=== PATIENT | female | born 1965 | race Caucasian/White ===

== ENCOUNTER 2020-05-23 23:16 | Observation (INO) ==
[2020-05-23] MEDS ORDERED: METOCLOPRAMIDE HCL INJ 5 MG/ML 2 ML VIAL IV STA (23:39)
[2020-05-23] MEDS ORDERED: diphenhydrAMINE 50 MG/ML VIAL IV STA (23:39)
[2020-05-23] MEDS ORDERED: OPTIRAY 320 125ml IV ONE (23:48)
--- NOTE | 2020-05-23 23:49 | Emergency Department Note ---
History of Present Illness General Chief complaint: Vertigo Stated complaint: SOB, CHEST/BACK PAIN, DIZZINESS Time Seen by Provider: 05/23/20 23:25 History of Present Illness This 55-year-old presents to the ER complaining of chest pain that radiates to her back with shortness of breath who feels dizzy with an unsteady gait since 9 PM Location: Chest Quality: Pressure Severity: Moderate Duration: Tonight Timing: Tonight Context: Patient was concerned and came in Modifying factors: better with rest; worse with activity Patient had her appendix out at the beginning the month and there was an abscess present. She finished her antibiotics yesterday. Patient states tonight she felt dizzy and had an unsteady gait and then developed chest pain with shortness of breath that radiates to her back. The symptoms have progressed. Activity makes it worse and nothing makes it better. No history of PE or stroke. Patient denies abdominal pain, fever, chills, localized weakness, vision problems. She describes it dizziness as feeling off balance. Home Medications Medication Instructions Recorded Confirmed Type bupropion HCl 150 mg PO BID 04/24/20 05/23/20 History Allergies Allergy/AdvReac Type Severity Reaction Status Date / Time albuterol Allergy Intermediate RASH, SHAKY Verified 05/23/20 23:46 shellfish derived Allergy Intermediate Hives, bad Verified 05/23/20 23:46 migraines oxycodone AdvReac Intermediate NAUSEA/VOMI Verified 05/23/20 23:46 TING Past Med/Surg History Medical History (Updated 05/24/20 @ 00:53 by Kat Alexis PA-C) Acute appendicitis Depression No known health problems Surgical History (Updated 05/23/20 @ 23:48 by Kat Alexis PA-C) History of appendectomy History of section History of colonoscopy Social History Smoking Status: Never smoker Second Hand Exposure: No; Hx Alcohol Use: Yes Alcohol type: wine Hx Substance Use: No Preferred Language: Spanish Communication Ability: Effective Database Management Specialist Required: No Beliefs That Will Affect Care: None Current Living Situation: Spouse Feels Safe at Home: Yes Safety Concerns: Feels Safe At This Time Assistive Devices: Glasses Review of Systems A total of 10 systems reviewed and were otherwise negative Physical Exam Vital Signs Vital Signs - 24 hr 05/23/20 23:21 05/23/20 23:36 05/24/20 00:30 Temperature 36.7 C Temperature Source Temporal Artery Scan Pulse Rate - Lying Pulse Rate - Sitting Pulse Rate - Standing Pulse Rate 84 78 78 Pulse Rate from SpO2 Sensor 77 77 Respiratory Rate 18 17 20 Blood Pressure - Lying Blood Pressure - Sitting Blood Pressure- Standing Blood Pressure 141/95 H 142/92 H 122/82 Blood Pressure Mean 110 108 95 Pulse Oximetry 97 98 96 Oxygen Delivery Method Room Air Sepsis Recent Fever Within 48 Hours No Sepsis New/Unexplained Change in Mental Status No Sepsis Action Taken by Nursing No Action Required 05/24/20 01:30 05/24/20 01:55 Temperature Temperature Source Pulse Rate - Lying 83 Pulse Rate - Sitting 89 Pulse Rate - Standing 91 H Pulse Rate 82 Pulse Rate from SpO2 Sensor 83 Respiratory Rate 19 Blood Pressure - Lying 113/78 Blood Pressure - Sitting 120/87 Blood Pressure- Standing 136/95 Blood Pressure 139/88 Blood Pressure Mean 105 Pulse Oximetry 98 Oxygen Delivery Method Sepsis Recent Fever Within 48 Hours Sepsis New/Unexplained Change in Mental Status Sepsis Action Taken by Nursing VITALS: Vitals are noted on the nurse's note and reviewed by myself. Vital signs stable. GENERAL: Pleasant female, in no acute distress, nondiaphoretic, well-developed well-nourished. SKIN: The skin was without rashes, erythema, edema, or bruising. There is no tenting of the skin. Capillary reflex less than 2 seconds. HEAD: Normocephalic atraumatic. EARS: External auditory canals clear, tympanic membranes pearly leroy without erythema or effusion bilaterally. EYES: Pupils equal round and reactive to light and accommodation. Conjunctivae without injection, sclerae without icterus. Extraocular movements intact. NOSE: Patent, turbinates without inflammation or discharge. MOUTH: Mucous membranes moist. Pharynx without erythema or exudate. Uvula midline. Airway patent. Tongue does not deviate. NECK: Supple without nuchal rigidity. No lymphadenopathy. No thyromegaly. Cervical spine is nontender. No JVD. HEART: Regular rate and rhythm LUNGS: Clear to auscultation bilaterally without wheezes, rales or rhonchi. No retractions or accessory muscle use. ABDOMEN: Positive bowel sounds x 4. Normal tympanic percussion. Soft, nontender, without masses or organomegaly. Romero sign negative. No guarding or rebound tenderness. No CVA tenderness MUSCULOSKELETAL: No muscle atrophy, erythema, or edema noted. NEURO: Patient was alert and oriented to person place and time. Normal sensation to light and sharp touch. Cranial nerves II through XII grossly intact. No pronator drift. Cerebellar exam intact. No focal neurological deficits. Course Administered Medications Lactated Ringer's (Lr) 1,000 mls @ 500 mls/hr IV .Q2H ONE Stop: 05/24/20 02:53 Last Admin: 05/24/20 01: Dose: 500 mls/hr Documented by: [id number] Discontinued Medications Aspirin (Aspirin Chew 324 Mg) 324 mg PO NOW STA Stop: 05/24/20 01:23 Last Admin: 05/24/20 01:27 Dose: 324 mg Documented by: [id number] Diphenhydramine HCl (Diphenhydramine 50 Mg/Ml Vial) 12.5 mg IV NOW STA Stop: 05/23/20 23:40 Last Admin: 05/23/20 23:47 Dose: 12.5 mg Documented by: [id number] Ioversol (Optiray 320 125ml) 119 ml IV ONCE ONE Stop: 05/23/20 23:49 Last Admin: 05/23/20 23:48 Dose: 119 ml Documented by: [id number] Metoclopramide HCl (Metoclopramide Hcl Inj 5 Mg/Ml 2 Ml Vial) 10 mg IV NOW STA Stop: 05/23/20 23:40 Last Admin: 05/23/20 23:47 Dose: 10 mg Documented by: [id number] Medical Decision Making Medical Records Attestation: I reviewed the patient's medical records. Home Medications Current Medication List: was personally reviewed by in Laboratory Data Attestation: I reviewed the patient's lab results. Result diagrams: 05/23/20 23:36 05/23/20 23:36 Lab Results 05/23/20 05/23/20 05/23/20 Range/Units 23:36 23:36 23:36 WBC 11.09 H (4.8-10.8) K/uL RBC 4.90 (4.2-5.4) M/uL Hgb 13.0 (12.0-16.0) g/dL POC Hgb (12.0-16.0) g/dl Hct 39.9 (37-47) % POC Hct (37-47) % MCV 81.4 (80-100) fL MCH 26.5 (25-34) pg MCHC 32.6 (32-36) g/dL RDW Std Deviation 43.6 (36.4-46.3) fL RDW Coeff of [place] 14.8 H (11.5-14.5) % Plt Count 342 (130-400) K/uL MPV 9.6 (7.4-10.4) fL Immature Gran % (Auto) 0.1 % Neut % (Auto) 65.1 % Lymph % (Auto) 25.8 % [place] % (Auto) 6.5 % Eos % (Auto) 2.0 % Baso % (Auto) 0.5 % Neut # (Auto) 7.22 H (1.4-6.5) K/uL Lymph # (Auto) 2.86 (1.2-3.4) K/uL [place] # (Auto) 0.72 H (0.11-0.59) K/uL Eos # (Auto) 0.22 (0-0.5) K/uL Baso # (Auto) 0.06 (0-0.2) K/uL Immature Gran # (Auto) 0.01 (0.00-0.02) K/uL PT 10.3 (9.0-12.0) Seconds INR 1.0 (0.9-1.1) APTT 25.8 (21.0-31.0) Seconds PTT Ratio 0.9 POC Sodium (135-144) mmol/L Sodium 139 (136-145) mmol/L POC Potassium (3.3-5.0) mmol/L Potassium 3.7 (3.5-5.1) mmol/L POC Chloride (101-112) mmol/L Chloride 106 (98-107) mmol/L Carbon Dioxide 26 (21-32) mmol/L POC Total CO2 (24-31) mmol/L Anion Gap 7.0 (3-11) POC Anion Gap (16-25) mmol/L POC BUN (7-18) mg/dl BUN 15 (7-18) mg/dl Creatinine 0.86 (0.6-1.2) mg/dl POC Creatinine (0.6-1.3) mg/dl Est Cr Clr Drug Dosing 87.0 ml/min Est GFR ( Amer) 89.4 Est GFR (Non-Af Amer) 77.1 BUN/Creatinine Ratio 17.6 (10-20) Glucose 104 H (70-99) mg/dl POC Glucose (other) (70-99) mg/dl Calcium 9.5 (8.5-10.1) mg/dl POC Ioniz Calcium Dipak (1.12-1.32) mmol/l Magnesium 2.0 (1.8-2.4) mg/dl Total Bilirubin 0.2 (0.2-1) mg/dl AST 13 L (15-37) U/L ALT 17 (12-78) U/L Alkaline Phosphatase 80 (45-117) U/L Troponin I < 0.015 (0-0.045) ng/ml Total Protein 7.5 (6.4-8.2) gm/dl Albumin 3.5 (3.4-5.0) gm/dl Globulin 4.0 (2.5-4.0) gm/dl Albumin/Globulin Ratio 0.9 (0.9-2) TSH 6.280 H (0.300-4.500) uIu/ml COVID-19 Eval Order 05/23/20 05/24/20 Range/Units 23:42 01:25 WBC (4.8-10.8) K/uL RBC (4.2-5.4) M/uL Hgb (12.0-16.0) g/dL POC Hgb 12.2 (12.0-16.0) g/dl Hct (37-47) % POC Hct 36 L (37-47) % MCV (80-100) fL MCH (25-34) pg MCHC (32-36) g/dL RDW Std Deviation (36.4-46.3) fL RDW Coeff of [place] (11.5-14.5) % Plt Count (130-400) K/uL MPV (7.4-10.4) fL Immature Gran % (Auto) % Neut % (Auto) % Lymph % (Auto) % [place] % (Auto) % Eos % (Auto) % Baso % (Auto) % Neut # (Auto) (1.4-6.5) K/uL Lymph # (Auto) (1.2-3.4) K/uL [place] # (Auto) (0.11-0.59) K/uL Eos # (Auto) (0-0.5) K/uL Baso # (Auto) (0-0.2) K/uL Immature Gran # (Auto) (0.00-0.02) K/uL PT (9.0-12.0) Seconds INR (0.9-1.1) APTT (21.0-31.0) Seconds PTT Ratio POC Sodium 137 (135-144) mmol/L Sodium (136-145) mmol/L POC Potassium 3.7 (3.3-5.0) mmol/L Potassium (3.5-5.1) mmol/L POC Chloride 103 (101-112) mmol/L Chloride (98-107) mmol/L Carbon Dioxide (21-32) mmol/L POC Total CO2 25 (24-31) mmol/L Anion Gap (3-11) POC Anion Gap 14.0 L (16-25) mmol/L POC BUN 16 (7-18) mg/dl BUN (7-18) mg/dl Creatinine (0.6-1.2) mg/dl POC Creatinine 0.7 (0.6-1.3) mg/dl Est Cr Clr Drug Dosing ml/min Est GFR ( Amer) Est GFR (Non-Af Amer) BUN/Creatinine Ratio (10-20) Glucose (70-99) mg/dl POC Glucose (other) 110 H (70-99) mg/dl Calcium (8.5-10.1) mg/dl POC Ioniz Calcium [place]ak 1.29 (1.12-1.32) mmol/l Magnesium (1.8-2.4) mg/dl Total Bilirubin (0.2-1) mg/dl AST (15-37) U/L ALT (12-78) U/L Alkaline Phosphatase (45-117) U/L Troponin I (0-0.045) ng/ml Total Protein (6.4-8.2) gm/dl Albumin (3.4-5.0) gm/dl Globulin (2.5-4.0) gm/dl Albumin/Globulin Ratio (0.9-2) TSH (0.300-4.500) uIu/ml COVID-19 Eval Order Covid19 [facility] Imaging Data Attestation: I personally reviewed and interpreted this imaging study as foll ows: MDM Narrative Prior records/ancillary studies reviewed and summarized above. Nursing notes reviewed. The patient's history was concerning for chest pain that radiates to her back with dyspnea and dizziness. Differential diagnosis: Etiologies such as PE, neurologic, metabolic, infection, hypo/hyperglycemia, electrolyte abnormalities, cardiac sources, intracerebral event, toxicologic, neurologic, as well as others were entertained. Physical examination: As above. ER treatment provided: IV Lock An order was placed for continuous cardiac monitoring. The monitor shows a rate of 60-100 with a sinus rhythm. Reglan, Benadryl On reassessment the patient felt better. Diagnostics interpretation by me: ECG: Ordered for chest pain EKG: Poor baseline, normal sinus, normal intervals, no acute ST-T wave changes. Impression normal sinus rhythm interpreted myself I think arrhythmia is unlikely. EKG shows normal sinus rhythm with no interval abnormalities such as QT prolongation or WPW. There are no findings to suggest Brugada syndrome. Cardiac monitoring in the emergency department reveals no tachycardic or bradycardic dysrhythmia. Hypertrophic cardiomyopathy was considered but there are no clear historical elements pointing toward this. EKG is not suggestive. The QRS voltage is not extremely large and there are no suggestive Q waves. The labs revealed negative troponin x2 Mild leukocytosis, stable H&H Glucose 104 Imaging studies: CT HEAD: No acute intracranial hemorrhage, hydrocephalus, edema, mass effect, or acute cortical infarct. Paranasal sinuses and mastoid air cells are clear. No fracture. Radiologist: Brannon Ha MD CTA CHEST: No pulmonary embolism or acute aortic syndrome. No acute pulmonary parenchymal abnormality. No pleural effusion. Intact bilateral breast implants. Radiologist: Brannon Ha MD CTA HEAD: No arterial occlusion, high-grade stenosis, aneurysm, or dissection. Radiologist: Brannon Ha MD CTA NECK: No arterial occlusion, high-grade stenosis, aneurysm, or dissection. Radiologist: Brannon Ha MD NIH is 0 TIA Score: Age > 60:(1) 0 BP >140 >90 (1): 0 Clinical features (unilateral weakness) (2): 0 CF speech disturbance (1): 0 Duration of symptoms 10-60min (1): 0 Duration >60min (2): 2 Diabetes (1): 0 Score @ 2days @ 7days @ 90days 0-3 low 1% 1.2% 3.1% 4-5 mod 4.1% 5.9% 9.8% 6-7 high 8.1% 11.7% 17.8% Total: 1 HEART SCORE: Hx: high/mod/low suspicion: 0 ECG: ST depression/nonspecific changes/normal: 0 Age: Greater than 65/45-64/less than 45: 1 Risk factors: (Hypertension, hyperlipidemia, diabetes, coronary disease, tobacco use, cocaine use): 0 Troponin: Greater than 2 times normal limits/1-2 times normal limits/normal: 0 Total: 1 Consultation: A consultation was placed with the hospitalist, Dr Dale. The case was discussed and diagnostics were reviewed. The patient was evaluated in the ER for further treatment. Exam and history seem consistent with chest pain, dizziness, unsteady gait. CTAs were negative. Patient will be evaluated by medicine for possible admission. Patient is agreeable. Patient was neurovascularly and neurologic ally intact. Patient had a recent appendectomy with complications of an abscess. She just finished antibiotics. Today she developed chest pain with dyspnea that radiates to her back. CTA was negative. By the evaluation outlined above emergent etiologies such as infection, electrolyte abnormalities, toxologic, abnormalities blood glucose, metabolic, as well as others were deemed relatively unlikely. The pt informed about the findings as listed above. All questions were answered and pleased with the treatment. The chart was completed utilizing [employer] Speech voice recognition software. Grammatical errors, random word insertions, pronoun errors, and incomplete sentences are an occassional consequence of this system due to software limitations, ambient noise, and hardware issues. Any formal questions or concerns about the content, text, or information contained within the body of this dictation should be directly addressed to the physician dental assistant instructor for clarification. Impression & Plan Chest pain, Dizziness, Unsteady gait Discharge Plan Visit Data Chief Complaint: Vertigo Stated Complaint: SOB, CHEST/BACK PAIN, DIZZINESS ED Provider: Loli Rucker ED Midlevel Provider: Kat Alexis Discharge Problem: Chest pain, Dizziness, Unsteady gait Patient Disposition: Being Evaluated by Hospitalist Condition: Good Forms Stand Alone Forms: [employer] Prescriptions Prescriptions: No Action bupropion HCl 150 mg tablet sustained-release 12 hr 150 mg PO BID RF: 0 Referrals Referrals: Tommy Pearl DO [Primary Care Provider] - Discharge Problem: Chest pain Qualifiers: Chest pain type: unspecified Qualified Code(s): R07.9 - Chest pain, unspecified
[2020-05-23 23:50] LABS: Basophils # (auto) 0.06 K/uL (0-0.2); Basophils % (auto) 0.5 %; Eosinophils # (auto) 0.22 K/uL (0-0.5); Hematocrit (blood only) 39.9 % (37-47); Immature Granulocytes # (auto) 0.01 K/uL (0.00-0.02); Immature Granulocytes % (auto) 0.1 %; Lymphocytes # (auto) 2.86 K/uL (1.2-3.4); Lymphocytes % (auto) 25.8 %; Mean Corpuscular Hemoglobin 26.5 pg (25-34); Mean Corpuscular Hgb Conc 32.6 g/dL (32-36); Mean Corpuscular Volume 81.4 fL (80-100); Mean Platelet Volume 9.6 fL (7.4-10.4); Monocytes # (auto) 0.72 K/uL (0.11-0.59); Monocytes % (auto) 6.5 %; Neutrophils # (auto) 7.22 K/uL (1.4-6.5); Neutrophils % (auto) 65.1 %; Platelet Count 342 K/uL (130-400); RDW Coefficient of Variation 14.8 % (11.5-14.5); RDW Standard Deviation 43.6 fL (36.4-46.3); White Blood Count 11.09 K/uL (4.8-10.8)
[2020-05-23 23:54] LABS: iSTAT Creatinine 0.7 mg/dl (0.6-1.3); iSTAT Hemoglobin 12.2 g/dl (12.0-16.0); iSTAT Ionized Calcium 1.29 mmol/l (1.12-1.32); iSTAT Potassium 3.7 mmol/L (3.3-5.0)
[2020-05-23 23:59] LABS: Alanine Aminotransferase 17 U/L (12-78); Albumin Level 3.5 gm/dl (3.4-5.0); Aspartate Aminotransferase 13 U/L (15-37); BUN Creatinine Ratio 17.6 (10-20); Blood Urea Nitrogen 15 mg/dl (7-18); Calcium 9.5 mg/dl (8.5-10.1); Carbon Dioxide 26 mmol/L (21-32); Chloride 106 mmol/L (98-107); Est GFR (African American) 89.4; Est GFR (Non-African American) 77.1; Glucose 104 mg/dl (70-99); Potassium 3.7 mmol/L (3.5-5.1); Sodium 139 mmol/L (136-145)
[2020-05-24 00:02] LABS: Albumin Globulin Ratio 0.9 (0.9-2); Bilirubin,Total 0.2 mg/dl (0.2-1); Total Protein 7.5 gm/dl (6.4-8.2)
[2020-05-24 00:05] LABS: Partial Thromboplastin Ratio 0.9; Partial Thromboplastin Time 25.8 Seconds (21.0-31.0); Prothrombin Time 10.3 Seconds (9.0-12.0)
[2020-05-24 00:19] LABS: Alkaline Phosphatase 80 U/L (45-117); Troponin I < 0.015 ng/ml (0-0.045)
[2020-05-24] MEDS ORDERED: LACTATED RINGER'S 1,000 ML IV ONE (00:54)
--- NOTE | 2020-05-24 01:20 | History & Physical Report ---
Date of Service May 24, 2020 Assessment & Plan (1) Dizziness: Possible vertigo Rule out orthostasis given initial symptom of lightheadedness on standing up. Rule out CVA given gait instability symptoms. Rule out cardiac dysfunction given chest pain complaints Chest pain likely due to anxiety. Intermittent painless hematuria symptoms rule out UTI Hyperglycemia rule out DM OBS PCU Check orthostatic vitals IVF Neurochecks MRI brain Aspirin for stroke prevention until stroke ruled out May benefit from Thien maneuver by physical therapy if with recurrent vertigo once stroke ruled out. TTE RE chest tightness, dizziness complaints. Anxiolytic as needed Check UA Check hemoglobin A1c DVT prophylaxis with Lovenox SQ Full code Text document was generated using [employer] voice recognition software. It may contain grammatical or spelling errors. Kindly contact undersigned for clarification of any documentation item in question. History of Present Illness Chief Complaint: Dizziness, chest pain Primary Care Provider: Tommy Pearl DO History obtained from patient and records. Medical history significant for anxiety/mood disorder. Last confinement 4 weeks ago under General Surgery service for acute appendicitis status post appendectomy. On follow-up at surgeon's office 2 weeks ago, patient complaining of RLQ pain. Outpatient imaging showed ileocolitis post appendectomy and rim-enhancing fluid collection possible hematoma/seroma/potential abscess. Patient completed Cipro and Flagyl with improvement of symptoms. Intermittent painless hematuria symptoms without fever chills. PCP's office ordered UA. Yesterday, patient noted dizziness described as lightheadedness upon standing up. Dizziness persisted even after patient sat down. Patient later noted spinning sensation worse with her eyes closed. No headache, no prior episodes in the past. Patient later noted transient chest tightness going to the back without cough, S OB symptoms when she laid down. Patient thinks chest tightness could just be from anxiety. Symptoms resolved upon arrival at the ER. Gait instability and patient feeling off balance on trying to move around. 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 Allergy/AdvReac Type Severity Reaction Status Date / Time albuterol Allergy Intermediate RASH, SHAKY Verified 05/23/20 23:46 shellfish derived Allergy Intermediate Hives, bad Verified 05/23/20 23:46 migraines oxycodone AdvReac Intermediate NAUSEA/VOMI Verified 05/23/20 23:46 TING Home Medications Medication Instructions Recorded Confirmed Type bupropion HCl 150 mg PO BID 04/24/20 05/23/20 History Past Med/Surg History Medical History (Updated 05/24/20 @ 00:53 by Kat Alexis PA-C) Acute appendicitis Depression No known health problems Surgical History (Updated 05/23/20 @ 23:48 by Kat Alexis PA-C) History of appendectomy History of section History of colonoscopy Social History Smoking Status: Never smoker Second Hand Exposure: No; Do You Dip or Chew Tobacco: No; Hx Alcohol Use: No Hx Substance Use: No Preferred Language: Haitian Communication Ability: Effective Newspaper Photojournalist Required: No Beliefs That Will Affect Care: None Current Living Situation: Spouse Other Information That Helps Us Care for You: No Feels Safe at Home: Yes Safety Concerns: Feels Safe At This Time Assistive Devices: Glasses Review of Systems Review of Systems: As per HPI, all 10 systems reviewed, all other ROS negative Physical Exam Physical Exam: GENERAL: Comfortable, slightly anxious, obese, no respiratory distress SKIN: Normal color, warm HEENT: Bespectacled, [place] palpebral conjunctivae, no ptosis, dry buccal mucosa NECK : Supple, short neck, no tenderness CHEST : CTA, no tenderness HEART : RRR, no obvious murmurs ABDOMEN: Some distention, nontender EXTREMITIES : Bilateral LE swelling, no LE tenderness, no other conspicuous deformities noted NEUROLOGIC : Coherent, no facial asymmetry, no other gross focality Results & Data Results & Data ([facility]) Vital Signs (Past 12 Hours) Vital Signs Temp Pulse Resp BP Pulse Ox 05/24/20 00:30 78 20 122/82 96 05/23/20 23:36 78 17 142/92 H 98 05/23/20 23:21 36.7 C 84 18 141/95 H 97 Laboratory Results Laboratory Results WBC 11.09 K/uL (4.8-10.8) H 05/23/20 23:36 RBC 4.90 M/uL (4.2-5.4) 05/23/20 23:36 Hgb 13.0 g/dL (12.0-16.0) 05/23/20 23:36 POC Hgb 12.2 g/dl (12.0-16.0) 05/23/20 23:42 Hct 39.9 % (37-47) 05/23/20 23:36 POC Hct 36 % (37-47) L 05/23/20 23:42 MCV 81.4 fL (80-100) 05/23/20 23:36 MCH 26.5 pg (25-34) 05/23/20 23:36 MCHC 32.6 g/dL (32-36) 05/23/20 23:36 RDW Std Deviation 43.6 fL (36.4-46.3) 05/23/20 23:36 RDW Coeff of [place] 14.8 % (11.5-14.5) H 05/23/20 23:36 Plt Count 342 K/uL (130-400) 05/23/20 23:36 MPV 9.6 fL (7.4-10.4) 05/23/20 23:36 Immature Gran % (Auto) 0.1 % 05/23/20 23:36 Neut % (Auto) 65.1 % 05/23/20 23:36 Lymph % (Auto) 25.8 % 05/23/20 23:36 [place] % (Auto) 6.5 % 05/23/20 23:36 Eos % (Auto) 2.0 % 05/23/20 23:36 Baso % (Auto) 0.5 % 05/23/20 23:36 Neut # (Auto) 7.22 K/uL (1.4-6.5) H 05/23/20 23:36 Lymph # (Auto) 2.86 K/uL (1.2-3.4) 05/23/20 23:36 [place] # (Auto) 0.72 K/uL (0.11-0.59) H 05/23/20 23:36 Eos # (Auto) 0.22 K/uL (0-0.5) 05/23/20 23:36 Baso # (Auto) 0.06 K/uL (0-0.2) 05/23/20 23:36 Immature Gran # (Auto) 0.01 K/uL (0.00-0.02) 05/23/20 23:36 PT 10.3 Seconds (9.0-12.0) 05/23/20 23:36 INR 1.0 (0.9-1.1) 05/23/20 23:36 APTT 25.8 Seconds (21.0-31.0) 05/23/20 23:36 PTT Ratio 0.9 05/23/20 23:36 POC Sodium 137 mmol/L (135-144) 05/23/20 23:42 Sodium 139 mmol/L (136-145) 05/23/20 23:36 POC Potassium 3.7 mmol/L (3.3-5.0) 05/23/20 23:42 Potassium 3.7 mmol/L (3.5-5.1) 05/23/20 23:36 POC Chloride 103 mmol/L (101-112) 05/23/20 23:42 Chloride 106 mmol/L (98-107) 05/23/20 23:36 Carbon Dioxide 26 mmol/L (21-32) 05/23/20 23:36 POC Total CO2 25 mmol/L (24-31) 05/23/20 23:42 Anion Gap 7.0 (3-11) 05/23/20 23:36 POC Anion Gap 14.0 mmol/L (16-25) L 05/23/20 23:42 POC BUN 16 mg/dl (7-18) 05/23/20 23:42 BUN 15 mg/dl (7-18) 05/23/20 23:36 Creatinine 0.86 mg/dl (0.6-1.2) 05/23/20 23:36 POC Creatinine 0.7 mg/dl (0.6-1.3) 05/23/20 23:42 Est Cr Clr Drug Dosing 87.0 ml/min 05/23/20 23:36 Est GFR ( Amer) 89.4 05/23/20 23:36 Est GFR (Non-Af Amer) 77.1 05/23/20 23:36 BUN/Creatinine Ratio 17.6 (10-20) 05/23/20 23:36 Glucose 104 mg/dl (70-99) H 05/23/20 23:36 POC Glucose (other) 110 mg/dl (70-99) H 05/23/20 23:42 Calcium 9.5 mg/dl (8.5-10.1) 05/23/20 23:36 POC Ioniz Calcium Dipak 1.29 mmol/l (1.12-1.32) 05/23/20 23:42 Magnesium 2.0 mg/dl (1.8-2.4) 05/23/20 23:36 Total Bilirubin 0.2 mg/dl (0.2-1) 05/23/20 23:36 AST 13 U/L (15-37) L 05/23/20 23:36 ALT 17 U/L (12-78) 05/23/20 23:36 Alkaline Phosphatase 80 U/L (45-117) 05/23/20 23:36 Troponin I < 0.015 ng/ml (0-0.045) 05/23/20 23:36 Total Protein 7.5 gm/dl (6.4-8.2) 05/23/20 23:36 Albumin 3.5 gm/dl (3.4-5.0) 05/23/20 23:36 Globulin 4.0 gm/dl (2.5-4.0) 05/23/20 23:36 Albumin/Globulin Ratio 0.9 (0.9-2) 05/23/20 23:36 TSH 6.280 uIu/ml (0.300-4.500) H 05/23/20 23:[address] head initial read: No acute intracranial hemorrhage, hydrocephalus, edema, mass-effect or acute cortical infarct. CTA head/neck initial read: No arterial occlusion, high-grade stenosis, aneurysm, or dissection. CTA chest initial read: No pulmonary embolism or acute aortic syndrome. No acute pulmonary parenchymal abnormality. No pleural effusion. Intact bilateral breast implants. EKG as per my capitation: Rate 80, NSR, normal axis, no ischemia
[2020-05-24] MEDS ORDERED: ASPIRIN CHEW 324 MG PO STA (01:22)
[2020-05-24] MEDS ORDERED: MECLIZINE 12.5 MG TAB PO PRN (03:59)
[2020-05-24] MEDS ORDERED: PROMETHAZINE HCL 12.5 MG in SODIUM CHLORIDE 0.9% 50 ML IV PRN (03:59)
[2020-05-24] MEDS ORDERED: traMADol HCL 50 MG TABLET PO PRN (03:59)
[2020-05-24] MEDS ORDERED: ACETAMINOPHEN 325 MG TAB PO PRN (03:59)
[2020-05-24] MEDS ORDERED: LORazepam 0.5 MG/1 ML VIAL IV PRN (03:59)
[2020-05-24 06:09] LABS: Basophils # (auto) 0.04 K/uL (0-0.2); Basophils % (auto) 0.5 %; Eosinophils # (auto) 0.13 K/uL (0-0.5); Eosinophils % (auto) 1.6 %; Hematocrit (blood only) 36.4 % (37-47); Hemoglobin 11.6 g/dL (12.0-16.0); Immature Granulocytes # (auto) 0.03 K/uL (0.00-0.02); Immature Granulocytes % (auto) 0.4 %; Lymphocytes # (auto) 2.45 K/uL (1.2-3.4); Lymphocytes % (auto) 30.4 %; Mean Corpuscular Hemoglobin 26.1 pg (25-34); Mean Corpuscular Hgb Conc 31.9 g/dL (32-36); Mean Platelet Volume 9.5 fL (7.4-10.4); Neutrophils # (auto) 5.02 K/uL (1.4-6.5); Neutrophils % (auto) 62.1 %; Platelet Count 276 K/uL (130-400); RDW Coefficient of Variation 14.7 % (11.5-14.5); RDW Standard Deviation 43.8 fL (36.4-46.3); Red Blood Count 4.44 M/uL (4.2-5.4); White Blood Count 8.07 K/uL (4.8-10.8)
[2020-05-24 06:19] LABS: Partial Thromboplastin Ratio 0.9; Partial Thromboplastin Time 26.2 Seconds (21.0-31.0)
[2020-05-24 06:29] LABS: Appearance Urine Clear (Clear); Bilirubin Urine Negative (Negative); Blood Urine Negative (Negative); Color Urine Yellow; Glucose Urine UA Negative (Negative); Ketones Urine Negative (Negative); Leukocyte Esterase Urine Negative (Negative); Nitrite Urine Negative (Negative); Protein Urine Negative (Negative); Specific Gravity Urine 1.033 (1.000-1.030); Urobilinogen Urine Negative (Negative)
[2020-05-24 06:30] LABS: Pregnancy Test, Urine Negative (Negative)
[2020-05-24 06:50] LABS: BUN Creatinine Ratio 21.9 (10-20); Blood Urea Nitrogen 15 mg/dl (7-18); Calcium 8.7 mg/dl (8.5-10.1); Carbon Dioxide 27 mmol/L (21-32); Chloride 110 mmol/L (98-107); Creatinine Clr Calc Pharmacy 106.6 ml/min; Est GFR (African American) 114.6; Est GFR (Non-African American) 98.9; Glucose 87 mg/dl (70-99); Potassium 4.3 mmol/L (3.5-5.1); Sodium 140 mmol/L (136-145)
[2020-05-24 06:56] LABS: Troponin I < 0.015 ng/ml (0-0.045)
[2020-05-24] MEDS: ENOXAPARIN INJ 40 MG/0.4 ML SYR SQ SCH (07:44)
[2020-05-24] MEDS: buPROPion SR 150 MG TABCR PO SCH ×2 (07:44→21:13)
--- NOTE | 2020-05-24 08:05 | CT Scan Report ---
CT head/brain wo con CLINICAL HISTORY: Stroke Like Symptoms COMPARISON STUDY: No previous studies for comparison. TECHNIQUE: Axial CT of the brain is performed from the vertex to the skull base. IV contrast was not administered for this examination. A dose lowering technique was utilized adhering to the principles of ALARA. CT DOSE: FINDINGS: No intra or extra-axial mass lesions are visualized. There is no CT evidence of acute cortical infarc tion. There is no evidence of midline shift. There is no acute hemorrhage. No calvarial fractures ar e visualized. There is no evidence of pathologic ventricular dilatation. There is no evidence of acute sinusitis IMPRESSION: No acute intracranial findings ACT 112: Negative or not required by law. Electronically signed by: Ric Dee M.D. 05/24/2020 8:04 AM
--- NOTE | 2020-05-24 08:07 | CT Scan Report ---
CT ANGIOGRAM OF THE CHEST CLINICAL HISTORY: Chest pain. Possible pulmonary embolism. COMPARISON STUDY: No previous studies for comparison. TECHNIQUE: Following the IV administration of 119 mL of Optiray-320, CT angiogram of the thorax was p erformed from the thoracic inlet to the lung bases utilizing the pulmonary embolus protocol. Images a re reviewed in the axial, sagittal, and coronal planes. IV contrast was administered without complica tion. MIP imaging was performed. A dose lowering technique was utilized adhering to the principles o f ALARA. CT DOSE: FINDINGS: No pathologically enlarged axillary mediastinal or hilar lymph nodes were visualized. There was no evidence of thoracic aortic dilatation. There were no pulmonary artery filling defects to indicate acute pulmonary embolism. No pleural effusions are visualized. There was no evidence of focal pulmonary consolidation. There are bilateral breast implants. IMPRESSION: 1. No acute intrathoracic findings 2. No evidence of acute pulmonary embolism 3. No evidence of focal pulmonary consolidation ACT 112: Negative or not required by law. Electronically signed by: Ric Dee M.D. 05/24/2020 8:06 AM
--- NOTE | 2020-05-24 08:14 | CT Scan Report ---
CT angio neck with con CLINICAL HISTORY: Stroke Like Symptoms COMPARISON STUDY: No previous studies for comparison. TECHNIQUE: CT angiography was performed from the aortic arch to the skull base. MIP imaging was perfo rmed. The patient was scanned in a dynamic helical fashion during intravenous administration of 119 c c of Optiray 320. A dose lowering technique was utilized adhering to the principles of ALARA. CT DOSE: 1520.83 mGy.cm Technique: CT angiogram of the carotid and vertebral arteries was obtained using intravenous contrast and 3-D reconstruction. NASCET criteria was utilized. Findings: The right carotid revealed no evidence of aneurysm and no evidence of dissection. There is no evidenc e of hemodynamic significant stenosis. The left carotid revealed no evidence of hemodynamic significant stenosis. There is no evidence of an eurysm. There is no evidence of dissection. There is no evidence of hemodynamically significant vertebral stenosis. There is no evidence of verte bral dissection. IMPRESSION: No evidence of hemodynamically significant carotid or vertebral artery stenosis. No evidence of disse ction. ACT 112: Negative or not required by law. Electronically signed by: Ric Dee M.D. 05/24/2020 8:13 AM
--- NOTE | 2020-05-24 08:19 | CT Scan Report ---
CT angio head w con CLINICAL HISTORY: Stroke Like Symptoms TECHNIQUE: CT angiography of the head was performed in a dynamic helical fashion during intravenous a dministration of 119 cc of Optiray 320. MIP imaging was performed. A dose lowering technique was util ized adhering to the principles of ALARA. CT DOSE: COMPARISON STUDY: No previous studies for comparison. FINDINGS: There are no lesion suspicious for aneurysm. There are no major intracranial branch occlusi ons. The dural venous sinuses appear patent.. 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 IMPRESSION: 1. Small basilar fenestration. Otherwise unremarkable CT angiography the brain. ACT 112: Negative or not required by law. Electronically signed by: Ric Dee M.D. 05/24/2020 8:18 AM
--- NOTE | 2020-05-24 10:20 | Magnetic Resonance Report ---
MRI OF THE BRAIN WITHOUT CONTRAST CLINICAL HISTORY: vertigo COMPARISON STUDY: Head CT and CTA of the head May 23, 2020. TECHNIQUE: Utilizing a 1.5 Dianna magnet and dedicated coil, multiplanar, multiecho imaging of the bra in was performed without IV contrast. FINDINGS: There are no foci of restricted diffusion to suggest acute infarct. No acute intracranial h emorrhage, midline shift or mass effect is present. Brain volume is normal. Ventricular system is nor mal. Basilar cisterns are patent. There are no extra-axial collections. Flow-voids for the major intr acranial vessels are present. No intracranial masses identified on this unenhanced examination. Minim al frontal sinus mucosal thickening is present. There is no evidence for acute sinusitis. Orbits are unremarkable. Incidental note is made of a 1.3 cm right parietal scalp sebaceous cyst. No parenchymal signal abnormality is noted. IMPRESSION: Unremarkable unenhanced MRI of the brain. No acute findings. ACT 112: Negative or not required by law. Electronically signed by: Khanh Inman M.D. 05/24/2020 10:18 AM
--- NOTE | 2020-05-24 12:21 | Hospitalist Progress Note ---
Date of Service May 24, 2020 Assessment & Plan (1) Dizziness: Dizziness Transient Vertigo Unclear etiology MRI Brain:Unremarkable unenhanced MRI of the brain. No acute findings. Head CTA:Small basilar fenestration. Otherwise unremarkable CT angiography the brain. Neck CTA:No evidence of hemodynamically significant carotid or vertebral artery stenosis. No evidence of dissection. Negative Orthostatics Continue to monitor on Tele Symptoms resolved May need ZIO patch arranged if recurrence of symptoms Atypical Chest Pain Likely Secondary to anxiety Troponin Negative ECHO: EF 60 to 65%. Left ventricular wall motion is normal. No pericardial effusion. No significant valvular pathology. CTA: No acute intrathoracic findings. No evidence of acute pulmonary embolism. No evidence of focal pulmonary consolidation Chest pain resolved Consider to get stress test as outpatient if indicated Intermittent painless hematuria UA not suggestive of UTI/Hematuria Follow up with Urology as outpatient Abnormal TSH Will recheck Thyroid function test in AM Hyperglycemia R/O DM II HbA1C: pending Anxiety Disorder Continue Bupropion DVT Px: Lovenox SQ Code Status Full Code Admission and Anticipated Discharge Date Admission Date: May 24, 2020 Subjective Patient is seen and examined at bedside States feeling much better today Dizziness, vertigo resolved Denies headache, change in vision, nausea, chest pain, dyspnea, abdominal pain Also denies any focal weakness Offers no other complaints Review of Systems Review of Systems: All systems reviewed & are unremarkable except as noted in HPI & below Physical Exam Physical Exam: Physical Exam: Vitals signs as noted above General Appearance:Obese, no apparent distress Head: normocephalic, Atraumatic Eyes: normal inspection, EOMI Neck: supple, Trachea midline Respiratory/Chest: Normal breath sounds, CTA, No accessory muscle use Cardiovascular: S1, S2, No murmur Abdomen/GI:Soft, Non tender, Bowel sounds present Extremities/Musculoskelatal:normal inspection, no edema Neurologic/Psych:AAOX3, grossly no focal neurological deficits Skin: normal color, warm Results & Data Results & Data ([facility]) Vital Signs (Past 12 Hours) Vital Signs Temp Pulse Pulse Resp BP BP Pulse Ox 05/24/20 08:00 36.9 C 87 18 121/80 96 05/24/20 04:15 82 05/24/20 03:59 36.6 C 18 121/78 98 05/24/20 03:00 79 22 141/86 H 97 05/24/20 02:30 81 21 146/89 H 97 05/24/20 02:00 82 16 134/93 98 05/24/20 01:30 82 19 139/88 98 05/24/20 00:30 78 20 122/82 96 Pulse Ox 05/24/20 08:00 05/24/20 04:15 05/24/20 03:59 98 05/24/20 03:00 05/24/20 02:30 05/24/20 02:00 05/24/20 01:30 05/24/20 00:30 Laboratory Results Short CBC 05/23/20 05/24/20 Range/Units 23:36 05:26 WBC 11.09 H 8.07 (4.8-10.8) K/uL Hgb 13.0 11.6 L (12.0-16.0) g/dL Hct 39.9 36.4 L (37-47) % Plt Count 342 276 (130-400) K/uL BMP 05/23/20 05/24/20 23:36 05:26 Sodium 139 140 Potassium 3.7 4.3 D Chloride 106 110 H Carbon Dioxide 26 27 BUN 15 15 Creatinine 0.86 0.70 Glucose 104 H 87 Calcium 9.5 8.7 Cardiac Enzymes 05/23/20 05/24/20 Range/Units 23:36 05:26 Troponin I < 0.015 < 0.015 (0-0.045) ng/ml Liver Function 05/23/20 Range/Units 23:36 Total Bilirubin 0.2 (0.2-1) mg/dl AST 13 L (15-37) U/L ALT 17 (12-78) U/L Alkaline Phosphatase 80 (45-117) U/L Albumin 3.5 (3.4-5.0) gm/dl Urine 05/24/20 Range/Units 06:15 Urine Color Yellow Urine Appearance Clear (Clear) Urine pH 5.0 (4.5-7.5) Ur Specific [place] 1.033 H (1.000-1.030) Urine Protein Negative (Negative) Urine Glucose (UA) Negative (Negative)
--- NOTE | 2020-05-24 12:33 | Electrocardiogram Report ---
Test Reason : Blood Pressure : / mmHG Vent. Rate : 079 BPM Atrial Rate : 079 BPM P-R Int : 146 ms QRS Dur : 072 ms QT Int : 360 ms P-R-T Axes : 066 029 048 degrees QTc Int : 412 ms Poor data quality, interpretation may be adversely affected Normal sinus rhythm Low voltage QRS Poor R wave progression, consider anterior FL vs. lead placement vs. LVH Abnormal ECG No previous ECGs available Confirmed by Flavio Thompson ([id number]) on 05/24/2020 12:33:41 PM Referred By: REFERRED SELF Confirmed By:Flavio Thompson
[2020-05-25 06:29] LABS: Estimated Average Glucose 111 mg/dl; Hemoglobin A1C 5.5 % (4.5-5.6)
[2020-05-25 06:30] LABS: Hematocrit (blood only) 36.2 % (37-47); Hemoglobin 11.7 g/dL (12.0-16.0); Mean Corpuscular Hemoglobin 26.2 pg (25-34); Mean Corpuscular Hgb Conc 32.3 g/dL (32-36); Mean Platelet Volume 9.5 fL (7.4-10.4); Platelet Count 264 K/uL (130-400); RDW Coefficient of Variation 15.2 % (11.5-14.5); RDW Standard Deviation 44.6 fL (36.4-46.3); Red Blood Count 4.47 M/uL (4.2-5.4); White Blood Count 6.38 K/uL (4.8-10.8)
[2020-05-25 07:22] LABS: BUN Creatinine Ratio 13.4 (10-20); Calcium 9.1 mg/dl (8.5-10.1); Creatinine Clr Calc Pharmacy 105.6 ml/min; Est GFR (African American) 114.6; Est GFR (Non-African American) 98.9; Magnesium 2.2 mg/dl (1.8-2.4); Potassium 3.9 mmol/L (3.5-5.1); Thyroid Stimulating Hormone 4.26 uIu/ml (0.300-4.500)
[2020-05-25] MEDS: buPROPion SR 150 MG TABCR PO SCH (08:57)
[2020-05-25] MEDS: ENOXAPARIN INJ 40 MG/0.4 ML SYR SQ SCH (08:58)
[2020-05-25] MEDS ORDERED: ASPIRIN 81 MG ECTAB PO SCH (09:00)
--- NOTE | 2020-05-25 10:03 | Hospitalist Progress Note ---
Date of Service May 25, 2020 Assessment & Plan (1) Dizziness: Dizziness Transient Vertigo Unclear etiology MRI Brain:Unremarkable unenhanced MRI of the brain. No acute findings. Head CTA:Small basilar fenestration. Otherwise unremarkable CT angiography the brain. Neck CTA:No evidence of hemodynamically significant carotid or vertebral artery stenosis. No evidence of dissection. Negative Orthostatics Continue to monitor on Tele Symptoms resolved Atypical Chest Pain Likely Secondary to anxiety Troponin Negative ECHO: EF 60 to 65%. Left ventricular wall motion is normal. No pericardial effusion. No significant valvular pathology. CTA: No acute intrathoracic findings. No evidence of acute pulmonary embolism. No evidence of focal pulmonary consolidation Chest pain resolved Advised to get stress test as outpatient Intermittent painless hematuria UA not suggestive of UTI/Hematuria Follow up with Urology as outpatient Abnormal TSH Repeat TSH within normal limits Hyperglycemia Ruled out DM II HbA1C:5.5 Anxiety Disorder Continue Bupropion DVT Px: Lovenox SQ Code Status Full Code Admission and Anticipated Discharge Date Admission Date: May 24, 2020 Subjective Patient is seen and examined at bedside " I feel strong" No new complaints Sinus Tachycardia on monitor Denies any recurrence of chest pain, dizziness, vertigo Also denies dyspnea, headache, change in vision, nausea, abdominal pain Eager to get discharged Review of Systems Review of Systems: All systems reviewed & are unremarkable except as noted in HPI & below Physical Exam Physical Exam: Physical Exam: Vitals signs as noted above General Appearance:Obese, no apparent distress Head: normocephalic, Atraumatic Eyes: normal inspection, EOMI Neck: supple, Trachea midline Respiratory/Chest: Normal breath sounds, CTA, No accessory muscle use Cardiovascular: S1, S2, No murmur Abdomen/GI:Soft, Non tender, Bowel sounds present Extremities/Musculoskelatal:normal inspection, no edema Neurologic/Psych:AAOX3, grossly no focal neurological deficits Skin: normal color, warm Results & Data Results & Data ([facility]) Vital Signs (Past 12 Hours) Vital Signs Temp Pulse Pulse Resp BP BP Pulse Ox 05/25/20 08:00 94 H 05/25/20 07:54 37.6 C H 101 H 20 117/87 96 05/25/20 04:20 37.2 C 94 H 18 125/82 95 05/24/20 23:36 36.8 C 84 95 H 17 134/88 95 Laboratory Results Short CBC 05/25/20 Range/Units 05:57 WBC 6.38 (4.8-10.8) K/uL Hgb 11.7 L (12.0-16.0) g/dL Hct 36.2 L (37-47) % Plt Count 264 (130-400) K/uL [facility] 05/25/20 05:57 Sodium 140 Potassium 3.9 Chloride 108 H Carbon Dioxide 27 BUN 9 D Creatinine 0.70 Glucose 84 Calcium 9.1
--- NOTE | 2020-05-25 10:13 | Discharge Summary ---
Date of Service May 25, 2020 Admission HPI Per Admitting Provider History obtained from patient and records. Medical history significant for anxiety/mood disorder. Last confinement 4 weeks ago under General Surgery service for acute appendicitis status post appendectomy. On follow-up at surgeon's office 2 weeks ago, patient complaining of RLQ pain. Outpatient imaging showed ileocolitis post appendectomy and rim-enhancing fluid collection possible hematoma/seroma/potential abscess. Patient completed Cipro and Flagyl with improvement of symptoms. Intermittent painless hematuria symptoms without fever chills. PCP's office ordered UA. Yesterday, patient noted dizziness described as lightheadedness upon standing up. Dizziness persisted even after patient sat down. Patient later noted spinning sensation worse with her eyes closed. No headache, no prior episodes in the past. Patient later noted transient chest tightness going to the back without cough, S OB symptoms when she laid down. Patient thinks chest tightness could just be from anxiety. Symptoms resolved upon arrival at the ER. Gait instability and patient feeling off balance on trying to move around. 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 Admission Exam Per Admitting Provider Physical Exam Physical Exam: GENERAL: Comfortable, slightly anxious, obese, no respiratory distress SKIN: Normal color, warm HEENT: Bespectacled, [place] palpebral conjunctivae, no ptosis, dry buccal mucosa NECK : Supple, short neck, no tenderness CHEST : CTA, no tenderness HEART : RRR, no obvious murmurs ABDOMEN: Some distention, nontender EXTREMITIES : Bilateral LE swelling, no LE tenderness, no other conspicuous deformities noted NEUROLOGIC : Coherent, no facial asymmetry, no other gross focality Principal Diagnosis Dizziness Atypical Chest Pain Discharge Data Allergies Allergy/AdvReac Type Severity Reaction Status Date / Time albuterol Allergy Intermediate RASH, SHAKY Verified 05/23/20 23:46 shellfish derived Allergy Intermediate Hives, bad Verified 05/23/20 23:46 migraines oxycodone AdvReac Intermediate NAUSEA/VOMI Verified 05/23/20 23:46 TING Consultations 05/24/20 00:52 ED Decision to Admit Stat Procedures Performed MRI Brain:Unremarkable unenhanced MRI of the brain. No acute findings. Head CTA:Small basilar fenestration. Otherwise unremarkable CT angiography the brain. Neck CTA:No evidence of hemodynamically significant carotid or vertebral artery stenosis. No evidence of dissection. ECHO: EF 60 to 65%. Left ventricular wall motion is normal. No pericardial effusion. No significant valvular pathology. CTA: No acute intrathoracic findings. No evidence of acute pulmonary embolism. No evidence of focal pulmonary consolidation Ordered Studies 05/23/20 23:39 CT angio chest PE protocol Urgent CT angio head w con Urgent CT angio neck with con Urgent CT head/brain wo con Urgent 05/24/20 03:59 MR brain wo con Routine Hospital Course (1) Dizziness: Dizziness Transient Vertigo Unclear etiology MRI Brain:Unremarkable unenhanced MRI of the brain. No acute findings. Head CTA:Small basilar fenestration. Otherwise unremarkable CT angiography the brain. Neck CTA:No evidence of hemodynamically significant carotid or vertebral artery stenosis. No evidence of dissection. Negative Orthostatics Continue to monitor on Tele Symptoms resolved Atypical Chest Pain Likely Secondary to anxiety Troponin Negative ECHO: EF 60 to 65%. Left ventricular wall motion is normal. No pericardial effusion. No significant valvular pathology. CTA: No acute intrathoracic findings. No evidence of acute pulmonary embolism. No evidence of focal pulmonary consolidation Chest pain resolved Advised to get stress test as outpatient Intermittent painless hematuria UA not suggestive of UTI/Hematuria Follow up with Urology as outpatient Abnormal TSH Repeat TSH within normal limits Hyperglycemia Ruled out DM II HbA1C:5.5 Anxiety Disorder Continue Bupropion DVT Px: Lovenox SQ Code Status Full Code Total Time Total Time Spent Total Time Spent (In Minutes): 35 minutes Discharge Plan Discharge Items Patient Disposition: Home - Self-Care Reason For Visit: DIZZINESS, CP Discharge Diagnosis: Dizziness Atypical Chest Pain Condition on Discharge: Good Activity: Resume your previous activity Exercise/Sports: Gradually increase as tolerated Non-emergency contact: Primary Care Provider and [employer] Call non-emergency contact if: you have any medication questions, your symptoms worsen, your pain is not controlled, your pain is worsening, your pain is unusual for you, your pain is concerning for you and you have a fever Follow-up/Referrals: Tommy Pearl DO [Primary Care Provider] - 05/26/20 8:25 am Diet: Heart Healthy Addtl Attending Provider Instructions: Follow up with your Primary Care physician in 1 week Get Stress test as outpatient as advised. Seek immediate medical attention if your symptoms reoccur or worsen Pending Studies at Discharge: No Stand-Alone Forms: My [facility] Blue Photo Stories, Smoking Cessation Medications and DC Order Prescriptions: New aspirin 81 mg Tablet,Delayed Release (Dr/Ec) 81 mg PO QAM Qty: 30 RF: 0 Continued bupropion HCl 150 mg tablet sustained-release 12 hr 150 mg PO BID RF: 0 Discharge Orders: Discharge Order (Routine); Ordered 05/25/20 Ordered By: Juancarlos De Leon Admission Data Admit Date/Time: 05/24/20 02:30 Attending Provider: Juancarlos De Leon Admit Provider: Mir Dale Primary Care Provider: Tommy Pearl Other Providers: Mir Dale Other Interventions: Discharge Summary Assessment (RN) Last Done: 05/25/20 10:00
--- NOTE | 2020-05-25 13:26 | Electrocardiogram Report ---
Test Reason : Blood Pressure : / mmHG Vent. Rate : 087 BPM Atrial Rate : 087 BPM P-R Int : 164 ms QRS Dur : 072 ms QT Int : 366 ms P-R-T Axes : 059 015 066 degrees QTc Int : 440 ms Normal sinus rhythm Low voltage QRS Poor R wave progression, consider anterior CA vs. lead placement vs. LVH Abnormal ECG When compared with ECG of 23-MAY-2020 23:31, No significant change was found Confirmed by Flavio Thompson ([id number]) on 05/25/2020 1:25:50 PM Referred By: REFERRED SELF Confirmed By:Flavio Thompson
== END 2020-05-25 10:58 | disposition home or self-care (01) ==
LOC: 2S 23:16 → ED 23:16 → 2S 05-24 04:10